=== PATIENT | female | born 1950 | race Caucasian/White ===

== ENCOUNTER → 2022-03-13 | Outpatient (CLI) | payer MEDICARE ==
[2022-03-13 13:20] LABS: BASO # 0.1 10^3/uL (0.0-0.2); BASO % 0.6 % (0.0-1.0); EOS # 0.3 10^3/uL (0.0-0.5); EOS % 3.3 % (0.0-3.0); LYMPH # 2.2 10^3/uL (1.5-5.0); MEAN CORPUSCULAR HEMOGLOBIN 25.3 pg (27.0-33.0); MEAN CORPUSCULAR HGB CONC 29.7 g/dl (32.0-36.5); MEAN CORPUSCULAR VOLUME 85.3 fl (80.0-96.0); MONO # 0.8 10^3/uL (0.0-0.8); MONO % 8.6 % (2.0-8.0); NEUTROPHILS # 5.5 10^3/uL (1.5-8.5); PLATELET COUNT, AUTOMATED 322 10^3/uL (150-450); RED BLOOD COUNT 4.34 10^6/uL (4.00-5.40); WHITE BLOOD COUNT 8.8 10^3/uL (4.0-10.0)
[2022-03-13 13:49] LABS: ALBUMIN 3.2 GM/DL (3.2-5.2); ALT/SGPT 27 U/L (12-78); BILIRUBIN,TOTAL 0.3 MG/DL (0.2-1.0); BLOOD UREA NITROGEN 17 MG/DL (7-18); CALCIUM LEVEL 9.1 MG/DL (8.8-10.2); CARBON DIOXIDE LEVEL 29 MEQ/L (21-32); CHLORIDE LEVEL 109 MEQ/L (98-107); GLOMERULAR FILTRATION RATE > 60.0 (>39); GLUCOSE, FASTING 83 MG/DL (70-100); POTASSIUM SERUM 3.6 MEQ/L (3.5-5.1); SODIUM LEVEL 140 MEQ/L (136-145); TOTAL PROTEIN 6.6 GM/DL (6.4-8.2)
[2022-03-13 14:01] LABS: ERYTHROCYTE SEDIMENTATION RATE 27 mm/hr (0-30)
[2022-03-13 14:32] LABS: VITAMIN B12 LEVEL 1512 PG/ML (247-911)
== END ==
LOC: M LAB 12:06
PROVIDERS: ATTEND Internal Medicine Gastroenterology
DX: K50.819 Crohn's disease of both small and large intestine with unspecified complications (principal)

== ENCOUNTER → 2022-04-01 | Outpatient (CLI) | payer MEDICARE ==
[~2022-04-01] MED LIST: ALLE180T33 PO; ATOR40TA75; BUDE3CAP; FLON1SPR NARES; OMEG10002 PO; OMEP-173; PROAAER10 INH; TUME1CAP PO; VITMTA PO; ZOLO100T
== END ==
LOC: M LABSMTC 11:27
PROVIDERS: ATTEND Anesthesiology
DX: Z01.818 Encounter for other preprocedural examination (principal); Z11.52 Encounter for screening for COVID-19

== ENCOUNTER → 2022-04-16 | Outpatient (CLI) | payer MEDICARE ==
[~2022-04-16] MED LIST changes: +GASTROGRAFIN SOLUTION 30ML (Q9963) As Ordered ONE; +ISOVUE-370 76% 100ML VIAL As Ordered ONE; +TRAV2.5D OP
== END ==
LOC: M RAD 10:40
PROVIDERS: ATTEND Internal Medicine Gastroenterology
DX: C18.9 Malignant neoplasm of colon, unspecified (principal)
CPT/HCPCS: 71260; 74177; Q9963; Q9967

== ENCOUNTER → 2022-09-22 | Outpatient (CLI) | payer MEDICARE ==
[~2022-09-22] MED LIST changes: +ACET325C5 PO; +B-12100010 PO; -GASTROGRAFIN SOLUTION 30ML (Q9963) As Ordered ONE; +GASTROGRAFIN SOLUTION 30ML As Ordered ONE; +HYDR-3713; +METO1TAB87; +NOXI1TAB PO; +TRAM50TA2; +VENTAER INH; +VITA1TAB61 PO
== END ==
LOC: M RAD 11:26
PROVIDERS: ATTEND Specialist
DX: C18.9 Malignant neoplasm of colon, unspecified (principal)
CPT/HCPCS: 71260; 74177; Q9963; Q9967

== ENCOUNTER → 2022-10-21 | Outpatient (CLI) | payer MEDICARE ==
[~2022-10-21] MED LIST changes: +ACET-683 PO; +ACETAMINOPHEN 325 MG TAB As Ordered ONE; +ACETAMINOPHEN TAB 650MG DOSE (2X325MG) PO PRN; -ATOR40TA75; +ATOR40TA75 PO; -GASTROGRAFIN SOLUTION 30ML As Ordered ONE; +HOME MED LIST COMPLETE! XX SCH; -HYDR-3713; +HYDR-3713 PO; +IBUP80TA PO; -ISOVUE-370 76% 100ML VIAL As Ordered ONE; +LIDOCAINE 1% MDV 20ML VIAL As Ordered ONE; -METO1TAB87; +METO1TAB87 PO; -OMEP-173; +OMEP-173 PO; -TRAV2.5D OP; +TRAV2.5D OU
[2022-10-21 13:00] VITALS: BP 144/80
== END ==
LOC: M IRPRO 08:31
PROVIDERS: ATTEND Specialist
DX: C78.01 Secondary malignant neoplasm of right lung (principal); C18.8 Malignant neoplasm of overlapping sites of colon; J95.811 Postprocedural pneumothorax

== ENCOUNTER → 2022-11-16 | Outpatient (CLI) | payer MEDICARE ==
[~2022-11-16] MED LIST changes: -ACETAMINOPHEN 325 MG TAB As Ordered ONE; -ACETAMINOPHEN TAB 650MG DOSE (2X325MG) PO PRN; -HOME MED LIST COMPLETE! XX SCH; +MIDAZOLAM INJ 2MG/2ML VIAL As Ordered ONE; +NS 1,000 ML IV SCH; +ceFAZolin 2 GM/D5W 50 ML IV BAG As Ordered ONE; +ceFAZolin SOD 2 GM in IV 1 EA IV ONE; +diphenhydrAMINE 50MG/ML VIAL As Ordered ONE; +fentaNYL 100 MCG/2 ML INJECTION As Ordered ONE
[2022-11-16 12:00] VITALS: BP 169/92
== END ==
LOC: M IRPRO 08:37
PROVIDERS: ATTEND Specialist
DX: C18.9 Malignant neoplasm of colon, unspecified (principal)
CPT/HCPCS: 36569; C1769; C1788; C1894; J0690; J1200; J2250; J3010

== ENCOUNTER → 2022-11-23 | Outpatient (REF) | payer MEDICARE ==
[~2022-11-23] MED LIST changes: +LIDO1CRE42 TOP; -LIDOCAINE 1% MDV 20ML VIAL As Ordered ONE; -MIDAZOLAM INJ 2MG/2ML VIAL As Ordered ONE; -NS 1,000 ML IV SCH; +ONDA-84 PO; +PROC10TA5 PO; +ZOLO100T PO; -ceFAZolin 2 GM/D5W 50 ML IV BAG As Ordered ONE; -ceFAZolin SOD 2 GM in IV 1 EA IV ONE; -diphenhydrAMINE 50MG/ML VIAL As Ordered ONE; -fentaNYL 100 MCG/2 ML INJECTION As Ordered ONE
[2022-11-23 08:40] LABS: ALBUMIN 3.5 G/DL (3.2-5.2); ALKALINE PHOSPHATASE 123 U/L (46-116); ALT/SGPT 19 U/L (7.0-40); AST/SGOT 19 U/L (<34); BILIRUBIN,TOTAL 0.5 MG/DL (0.3-1.2); BLOOD UREA NITROGEN 12 MG/DL (9-23); CALCIUM LEVEL 8.8 MG/DL (8.3-10.6); CARBON DIOXIDE LEVEL 23 MMOL/L (20-31); CHLORIDE LEVEL 109 MMOL/L (98-107); CHOLESTEROL LEVEL 180 MG/DL (<200); CHOLESTEROL RISK RATIO 2.95 (<5); CREATININE FOR GFR 0.85 MG/DL (0.55-1.30); GLOMERULAR FILTRATION RATE > 60.0 (>39); GLUCOSE, FASTING 137 MG/DL (74-106); LDL CHOLESTEROL 78.8 MG/DL (<100); POTASSIUM SERUM 3.4 MMOL/L (3.5-5.1); SODIUM LEVEL 140 MMOL/L (136-145); TOTAL PROTEIN 6.9 G/DL (5.7-8.2); TRIGLYCERIDES LEVEL 201 MG/DL (<150)
== END ==
LOC: M LAB REF 07:51
PROVIDERS: ATTEND Internal Medicine
DX: E78.2 Mixed hyperlipidemia (principal)

== ENCOUNTER → 2022-12-29 | Outpatient (POV) | payer MEDICARE ==
[~2022-12-29] VITALS: Ht 157.5 cm; Wt 85.0 kg
[~2022-12-29] MED LIST changes: +magnesium; +potassium
[2022-12-29 10:50] VITALS: BP 166/93; O2SAT 100
== END ==
LOC: M IRPOV 10:36
PROVIDERS: ATTEND Radiology Diagnostic Radiology
DX: Z45.2 Encounter for adjustment and management of vascular access device (principal); Z88.5 Allergy status to narcotic agent

== ENCOUNTER → 2023-02-26 | Outpatient (CLI) | payer MEDICARE ==
[~2023-02-26] MED LIST changes: +ISOVUE-370 76% 100ML VIAL As Ordered ONE; -LIDO1CRE42 TOP; +LIDO30CR18 TOP
== END ==
LOC: M RAD 11:11
PROVIDERS: ATTEND Specialist
DX: C18.9 Malignant neoplasm of colon, unspecified (principal)
CPT/HCPCS: 71260; 74177; Q9967

== ENCOUNTER → 2023-05-31 | Outpatient (CLI) | payer MEDICARE ==
[~2023-05-31] MED LIST changes: +GABA-1171 PO
== END ==
LOC: M RAD 11:05
PROVIDERS: ATTEND Specialist
DX: C18.9 Malignant neoplasm of colon, unspecified (principal)
CPT/HCPCS: 71260; 74177; Q9967

== ENCOUNTER → 2023-08-05 | Outpatient (CLI) | payer MEDICARE | LOC: M RAD 11:18 | PROVIDERS: ATTEND Specialist | DX: C18.9 Malignant neoplasm of colon, unspecified (principal) | CPT/HCPCS: 71260; 74177; Q9967 ==

== ENCOUNTER 2023-12-13 09:19 | Day surgery (SDC) | payer MEDICARE ==
[~2023-12-13] VITALS: Ht 154.9 cm; Wt 84.4 kg
[~2023-12-13 09:19] MED LIST changes: +EQL50TAB2 PO; -ISOVUE-370 76% 100ML VIAL As Ordered ONE; +KRIL1000 PO; +NS 1,000 ML IV ONE; +POTA-149 PO; +SERT150C PO; +THERTAB52 PO; +VITA100093 PO
[2023-12-13] MEDS ORDERED: LIDOCAINE 2% 100MG/5ML SDV (FOR ANES.) As Ordered ONE (10:16)
[2023-12-13] MEDS ORDERED: propofoL 500 MG/50 ML VIAL As Ordered ONE (10:16)
[2023-12-13] MEDS ORDERED: ePHEDrine SULFATE 25 MG/5 ML(5MG/ML) SYRINGE As Ordered ONE (10:27)
[2023-12-13] MEDS ORDERED: hydrALAZINE 20MG/ML 1ML VIAL As Ordered ONE (10:27)
[2023-12-13] MEDS ORDERED: PHENYLephrine 500MCG 5ML (100MCG/ML) SYRINGE As Ordered ONE (10:27)
[2023-12-13 10:41] VITALS: TEMP 97.9
[2023-12-13] MEDS ORDERED: ONDANSETRON 4MG 2ML VIAL As Ordered ONE (11:01)
[2023-12-13 11:19] VITALS: BP 121/59; O2SAT 97
== END 2023-12-13 11:20 | disposition home or self-care (01) ==
LOC: M OPP 09:19
PROVIDERS: ATTEND Internal Medicine Gastroenterology
DX: Z01.818 Encounter for other preprocedural examination (principal); K62.1 Rectal polyp; Z87.19 Personal history of other diseases of the digestive system; Z09 Encounter for follow-up examination after completed treatment for conditions other than malignant neoplasm; Z85.048 Personal history of other malignant neoplasm of rectum, rectosigmoid junction, and anus; Z08 Encounter for follow-up examination after completed treatment for malignant neoplasm; Z79.02 Long term (current) use of antithrombotics/antiplatelets; Z79.1 Long term (current) use of non-steroidal anti-inflammatories (NSAID); Z79.52 Long term (current) use of systemic steroids; Z79.899 Other long term (current) drug therapy
CPT/HCPCS: 44382; 45331; 88305; J0360; J2371; J2405

== ENCOUNTER → 2024-02-03 | Outpatient (CLI) | payer MEDICARE ==
[~2024-02-03] MED LIST changes: -NS 1,000 ML IV ONE
== END ==
LOC: M RAD 10:00
PROVIDERS: ATTEND Surgery
DX: C19 Malignant neoplasm of rectosigmoid junction (principal)

== ENCOUNTER → 2024-04-05 | Outpatient (CLI) | payer MEDICARE ==
[~2024-04-05] MED LIST changes: +NYST1POW9 TOP
== END ==
LOC: M ONCR 10:58
PROVIDERS: ATTEND General Practice
DX: C20 Malignant neoplasm of rectum (principal); C77.2 Secondary and unspecified malignant neoplasm of intra-abdominal lymph nodes; C78.01 Secondary malignant neoplasm of right lung; C78.02 Secondary malignant neoplasm of left lung; K50.90 Crohn's disease, unspecified, without complications; J30.2 Other seasonal allergic rhinitis; Z82.49 Family history of ischemic heart disease and other diseases of the circulatory system; Z87.891 Personal history of nicotine dependence; Z79.899 Other long term (current) drug therapy; Z88.5 Allergy status to narcotic agent; Z92.21 Personal history of antineoplastic chemotherapy

== ENCOUNTER 2024-04-18 10:47 | Outpatient (RCR) | payer MEDICARE | END 2024-05-04 | LOC: M ONCR 10:47 | PROVIDERS: ATTEND General Practice | DX: Z51.0 Encounter for antineoplastic radiation therapy (principal); C20 Malignant neoplasm of rectum ==

== ENCOUNTER 2024-05-16 14:45 | Outpatient (RCR) | payer MEDICARE ==
[~2024-05-16 14:45] MED LIST changes: +NYST1POW3 TOP; -NYST1POW9 TOP
== END 2024-06-03 ==
LOC: M ONCR 14:45
PROVIDERS: ATTEND General Practice
DX: Z51.0 Encounter for antineoplastic radiation therapy (principal); C20 Malignant neoplasm of rectum

== ENCOUNTER → 2025-01-17 | Outpatient (CLI) | payer MEDICARE ==
[~2025-01-17] MED LIST changes: +B-122500 PO; -EQL50TAB2 PO; +FAMO10TA50 PO; +ISOVUE-370 76% 100 ML VIAL As Ordered ONE; +POTA-151 PO; +VITA1TAB82 PO
== END ==
LOC: M RAD 08:04
PROVIDERS: ATTEND Internal Medicine Gastroenterology
DX: K56.690 Other partial intestinal obstruction (principal); C20 Malignant neoplasm of rectum; C79.9 Secondary malignant neoplasm of unspecified site
CPT/HCPCS: 74177; Q9967

== ENCOUNTER 2025-01-23 13:25 | Inpatient (IN) | payer MEDICARE ==
[~2025-01-23] VITALS: Ht 157.5 cm; Wt 82.8 kg
[~2025-01-23 13:25] MED LIST changes: -ISOVUE-370 76% 100 ML VIAL As Ordered ONE
[2025-01-23 16:10] LABS: BASO # 0.0 10^3/uL (0.0-0.2); BASO % 0.3 % (0.0-1.0); EOS # 0.1 10^3/uL (0.0-0.5); EOS % 1.0 % (0.0-3.0); LYMPH # 1.2 10^3/uL (1.5-5.0); LYMPH % 12.6 % (24.0-44.0); MONO # 1.0 10^3/uL (0.0-0.8); MONO % 10.3 % (2.0-8.0); NEUTROPHILS # 7.3 10^3/uL (1.5-8.5); NEUTROPHILS % 75.3 % (36.0-66.0); PLATELET COUNT, AUTOMATED 239 10^3/uL (150-450)
[2025-01-23] MEDS: NS (Normal Saline) 0.9% 1,000 ML IV SCH ×2 (16:14→19:32)
[2025-01-23 16:26] LABS: ALT/SGPT 30.0 U/L (7.0-40); AST/SGOT 26.0 U/L (<34); CALCIUM LEVEL 9.6 MG/DL (8.3-10.6); CARBON DIOXIDE LEVEL 23.0 MMOL/L (20-31); CHLORIDE LEVEL 93.0 MMOL/L (98-107); CREATININE FOR GFR 2.2 MG/DL (0.55-1.30); GLOMERULAR FILTRATION RATE 23.0 (>39); MAGNESIUM LEVEL 1.5 MG/DL (1.8-2.4); POTASSIUM SERUM 3.2 MMOL/L (3.5-5.1); SODIUM LEVEL 134.0 MMOL/L (136-145)
[2025-01-23] MEDS ORDERED: FAMO40TA3 PO (16:48)
[2025-01-23] MEDS ORDERED: LIDO30CR18 TOP (16:48)
[2025-01-23] MEDS ORDERED: POTA-151 PO (16:48)
[2025-01-23] MEDS ORDERED: HOME MED LIST COMPLETE! XX SCH (16:50)
[2025-01-23] MEDS: MAG SULF 1GM/100ML (MAG RUN) 1 GM in IV 1 EA IV ONE (17:21)
[2025-01-23] MEDS: NS 500 ML IV ONE (17:21)
[2025-01-23] MEDS ORDERED: NYSTATIN 100,000 UNITS/GM TOPICAL PWD 15 GM TOP PRN (18:50)
[2025-01-23] MEDS ORDERED: FLUTICASONE PROPIONATE 0.05% NASAL SPRAY 16 GM NARES PRN (18:50)
[2025-01-23] MEDS: FAMOTIDINE IV BAG 20 MG in IV 1 EA IV SCH (19:33)
[2025-01-23] MEDS: KCL 10MEQ/100ML SWI (KRUN) 10 MEQ in IV 1 EA IV SCH (20:04)
[2025-01-23 20:27] VITALS: BP 143/78; TEMP 97; O2SAT 99
[2025-01-23 21:22] LABS: INR 1.05
[2025-01-23] MEDS: MORPHINE 2 MG/ML 1 ML VIAL IV PRN (21:28)
[2025-01-23] MEDS: ONDANSETRON 4MG 2ML VIAL IV PRN (22:21)
[2025-01-24] MEDS ORDERED: POTASSIUM CHLORIDE 10MEQ/100ML SWI As Ordered ONE (02:25)
[2025-01-24 03:37] VITALS: BP 107/61; TEMP 97.3; O2SAT 94
[2025-01-24 06:14] LABS: PLATELET COUNT, AUTOMATED 209 10^3/uL (150-450)
[2025-01-24 06:51] LABS: ALT/SGPT 27.0 U/L (7.0-40); AST/SGOT 26.0 U/L (<34); CALCIUM LEVEL 9.0 MG/DL (8.3-10.6); CARBON DIOXIDE LEVEL 24.0 MMOL/L (20-31); CHLORIDE LEVEL 98.0 MMOL/L (98-107); CREATININE FOR GFR 1.88 MG/DL (0.55-1.30); GLOMERULAR FILTRATION RATE 27.7 (>39); MAGNESIUM LEVEL 2.0 MG/DL (1.8-2.4); POTASSIUM SERUM 3.9 MMOL/L (3.5-5.1); SODIUM LEVEL 136.0 MMOL/L (136-145)
[2025-01-24] MEDS: HEPARIN SOD 5000 UNITS/ML 1 ML VIAL/SYRINGE SQ SCH (08:15)
[2025-01-24 12:00] VITALS: BP 107/61; TEMP 96.8; O2SAT 100
[2025-01-24 20:30] VITALS: BP 131/83; TEMP 96.8; O2SAT 96
[2025-01-25 05:00] VITALS: BP 108/63; TEMP 96.8; O2SAT 97
[2025-01-25 06:25] LABS: PLATELET COUNT, AUTOMATED 195 10^3/uL (150-450)
[2025-01-25 06:52] LABS: ALT/SGPT 22.0 U/L (7.0-40); AST/SGOT 21.0 U/L (<34); CALCIUM LEVEL 8.2 MG/DL (8.3-10.6); CARBON DIOXIDE LEVEL 22.0 MMOL/L (20-31); CHLORIDE LEVEL 109.0 MMOL/L (98-107); CREATININE FOR GFR 1.31 MG/DL (0.55-1.30); GLOMERULAR FILTRATION RATE 42.8 (>39); MAGNESIUM LEVEL 1.7 MG/DL (1.8-2.4); POTASSIUM SERUM 3.5 MMOL/L (3.5-5.1); SODIUM LEVEL 143.0 MMOL/L (136-145)
[2025-01-25 08:49] VITALS: BP 115/71; TEMP 97.3; O2SAT 98
[2025-01-25] MEDS: MAG SULF 1GM/100ML (MAG RUN) 1 GM in IV 1 EA IV SCH (11:04)
[2025-01-25 11:52] VITALS: BP 113/69; TEMP 97.2; O2SAT 97
[2025-01-25 20:00] VITALS: BP 124/73; TEMP 97; O2SAT 99
[2025-01-26] VITALS (8 sets, daily range): BP systolic 102–126; BP diastolic 55–73; TEMP 96.8–97.5; O2SAT 94–97
[2025-01-26 06:05] LABS: PLATELET COUNT, AUTOMATED 222 10^3/uL (150-450)
[2025-01-26 06:30] LABS: ALT/SGPT 24.0 U/L (7.0-40); AST/SGOT 23.0 U/L (<34); CALCIUM LEVEL 8.4 MG/DL (8.3-10.6); CARBON DIOXIDE LEVEL 22.0 MMOL/L (20-31); CHLORIDE LEVEL 108.0 MMOL/L (98-107); CREATININE FOR GFR 1.11 MG/DL (0.55-1.30); GLOMERULAR FILTRATION RATE 52.2 (>39); MAGNESIUM LEVEL 1.9 MG/DL (1.8-2.4); POTASSIUM SERUM 3.4 MMOL/L (3.5-5.1); SODIUM LEVEL 146.0 MMOL/L (136-145)
[2025-01-26] MEDS: KCL 10MEQ/100ML SWI (KRUN) 10 MEQ in IV 1 EA IV SCH (08:16)
[2025-01-26] MEDS: NS 0.45% 1,000 ML IV SCH (08:47)
[2025-01-26] MEDS: MORPHINE 2 MG/ML 1 ML VIAL IV PRN ×2 (11:13→20:15)
[2025-01-26] MEDS ORDERED: ROCURONIUM BROMIDE 50MG/5ML VIAL As Ordered ONE (12:44)
[2025-01-26] MEDS ORDERED: LIDOCAINE 2% 100 MG/5 ML SDV (FOR ANES.) As Ordered ONE (12:44)
[2025-01-26] MEDS ORDERED: dexAMETHasone 4 MG/ML 1 ML VIAL As Ordered ONE (12:45)
[2025-01-26] MEDS ORDERED: HYDROmorphone HCL 2 MG/ML 1 ML VIAL As Ordered ONE (13:29)
[2025-01-26] MEDS ORDERED: ONDANSETRON 4MG 2ML VIAL As Ordered ONE (13:53)
[2025-01-26] MEDS ORDERED: PHENYLephrine 500MCG 5ML (100MCG/ML) SYRINGE As Ordered ONE (13:53)
[2025-01-26] MEDS ORDERED: SUGAMMADEX SODIUM 500 MG/5 ML VIAL As Ordered ONE (13:54)
[2025-01-26] MEDS ORDERED: ACETAMINOPHEN 1000MG/100ML IV BAG As Ordered ONE (14:18)
[2025-01-26] MEDS: GLUCAGON INJ 1 MG VIAL As Ordered ONE (16:30)
[2025-01-26] MEDS ORDERED: ACETAMINOPHEN 325 MG TAB PO PRN (16:50)
[2025-01-26] MEDS ORDERED: MORPHINE 4 MG/ML 1 ML VIAL IV PRN (16:50)
[2025-01-26] MEDS ORDERED: HYDROMORPHONE HCL 0.5 MG/0.5 ML SYRINGE IV PRN (17:00)
[2025-01-26] MEDS ORDERED: ONDANSETRON 4MG 2ML VIAL IV PRN (17:00)
[2025-01-26 18:47] LABS: CALCIUM LEVEL 7.8 MG/DL (8.3-10.6); CARBON DIOXIDE LEVEL 15.0 MMOL/L (20-31); CHLORIDE LEVEL 108.0 MMOL/L (98-107); CREATININE FOR GFR 1.0 MG/DL (0.55-1.30); GLOMERULAR FILTRATION RATE 59.1 (>39); POTASSIUM SERUM 4.2 MMOL/L (3.5-5.1); SODIUM LEVEL 142.0 MMOL/L (136-145)
[2025-01-26] MEDS: KETOROLAC 30 MG/ML 1 ML VIAL IV SCH (18:58)
[2025-01-26 19:28] LABS: PLATELET COUNT, AUTOMATED 211 10^3/uL (150-450)
[2025-01-26] MEDS: KCL 10MEQ/100ML SWI (KRUN) 10 MEQ in IV 1 EA IV ONE (19:56)
[2025-01-26] MEDS: LR 1,000 ML IV SCH (20:00)
[2025-01-26 21:51] LABS: VENOUS BASE EXCESS -6.4 (-2.0-2.0); VENOUS HCO3 16.9 MMOL/L (23.0-27.0); VENOUS O2 SATURATION 99.3 % (60.0-80.0); VENOUS PARTIAL PRESSURE CO2 27.0 mmHg (38.0-50.0); VENOUS PARTIAL PRESSURE O2 243.5 mmHg (30.0-50.0); VENOUS PH 7.415 UNITS (7.330-7.430); VENOUS STANDARD HCO3 19.3 MMOL/L; VENOUS TOTAL CO2 17.8 MMOL/L (24.0-28.0)
[2025-01-27 00:48] LABS: CALCIUM LEVEL 7.6 MG/DL (8.3-10.6); CARBON DIOXIDE LEVEL 21.0 MMOL/L (20-31); CHLORIDE LEVEL 109.0 MMOL/L (98-107); CREATININE FOR GFR 1.09 MG/DL (0.55-1.30); GLOMERULAR FILTRATION RATE 53.3 (>39); POTASSIUM SERUM 4.5 MMOL/L (3.5-5.1); SODIUM LEVEL 142.0 MMOL/L (136-145)
[2025-01-27 04:25] VITALS: BP 107/57; TEMP 97.7; O2SAT 98
[2025-01-27] MEDS: CHLORASEPTIC SPRAY MT PRN (04:35)
[2025-01-27 06:30] LABS: PLATELET COUNT, AUTOMATED 179 10^3/uL (150-450)
[2025-01-27 06:59] LABS: ALT/SGPT 17.0 U/L (7.0-40); AST/SGOT 18.0 U/L (<34); CALCIUM LEVEL 7.5 MG/DL (8.3-10.6); CARBON DIOXIDE LEVEL 22.0 MMOL/L (20-31); CHLORIDE LEVEL 109.0 MMOL/L (98-107); CREATININE FOR GFR 1.12 MG/DL (0.55-1.30); GLOMERULAR FILTRATION RATE 51.6 (>39); MAGNESIUM LEVEL 1.3 MG/DL (1.8-2.4); POTASSIUM SERUM 4.1 MMOL/L (3.5-5.1); SODIUM LEVEL 142.0 MMOL/L (136-145)
[2025-01-27 08:00] VITALS: O2SAT 95
[2025-01-27 08:10] VITALS: BP 100/52; TEMP 97; O2SAT 98
[2025-01-27] MEDS: MAG SULF 1GM/100ML (MAG RUN) 1 GM in IV 1 EA IV SCH (12:11)
[2025-01-27 12:20] VITALS: BP 118/66; TEMP 97.3; O2SAT 95
[2025-01-27 16:15] VITALS: BP 112/62; TEMP 97.2; O2SAT 96
[2025-01-27] MEDS: LIDOCAINE 5% OINT 30 GM TUBE TOP ONE (17:02)
[2025-01-27] MEDS ORDERED: SODIUM CHLORIDE 0.9% INJ 10 ML SYR IV PRN (19:05)
[2025-01-27] MEDS ORDERED: HEPARIN LOCK FLUSH 100 UNITS/ML 3 ML SYRINGE IV PRN (19:05)
[2025-01-27 20:00] VITALS: BP 128/70; TEMP 97; O2SAT 98
[2025-01-27] MEDS: MAGNESIUM OXIDE 400 MG TAB PO SCH (21:24)
[2025-01-28 04:00] VITALS: BP 130/70; TEMP 97.2; O2SAT 95
[2025-01-28 07:00] LABS: PLATELET COUNT, AUTOMATED 157 10^3/uL (150-450)
[2025-01-28 07:29] LABS: ALT/SGPT 12.0 U/L (7.0-40); AST/SGOT 23.0 U/L (<34); CALCIUM LEVEL 7.6 MG/DL (8.3-10.6); CARBON DIOXIDE LEVEL 24.0 MMOL/L (20-31); CHLORIDE LEVEL 108.0 MMOL/L (98-107); CREATININE FOR GFR 1.0 MG/DL (0.55-1.30); GLOMERULAR FILTRATION RATE 59.1 (>39); MAGNESIUM LEVEL 1.5 MG/DL (1.8-2.4); POTASSIUM SERUM 3.2 MMOL/L (3.5-5.1); SODIUM LEVEL 145.0 MMOL/L (136-145)
[2025-01-28] MEDS: SERTRALINE HCL 50 MG TAB PO SCH (08:33)
[2025-01-28] MEDS: HEPARIN LOCK FLUSH 100 UNITS/ML 3 ML SYRINGE IV SCH (08:34)
[2025-01-28] MEDS: SODIUM CHLORIDE 0.9% INJ 10 ML SYR IV SCH (08:36)
[2025-01-28 12:00] VITALS: BP 136/78; TEMP 97.5; O2SAT 98
[2025-01-28] MEDS: KCL 10MEQ/100ML SWI (KRUN) 10 MEQ in IV 1 EA IV SCH (12:47)
[2025-01-28] MEDS ORDERED: FAT EMULSION IV 250 ML IV ONE (18:00)
[2025-01-28] MEDS ORDERED: AMINO AC/ELECTROLYTE/DEX/CALC 1,000 ML IV SCH (18:00)
[2025-01-28] MEDS ORDERED: INSULIN LISPRO (NovoLOG) PER UNIT SC SCH (18:00)
[2025-01-28 20:42] VITALS: BP 124/68; TEMP 97.3; O2SAT 95
[2025-01-28] MEDS: LR 1,000 ML IV SCH (21:03)
[2025-01-29] MEDS: MORPHINE 2 MG/ML 1 ML VIAL IV PRN (01:36)
[2025-01-29 03:27] VITALS: BP 116/62; TEMP 97.3; O2SAT 93
[2025-01-29 06:56] LABS: PLATELET COUNT, AUTOMATED 149 10^3/uL (150-450)
[2025-01-29 07:32] LABS: ALT/SGPT 11.0 U/L (7.0-40); AST/SGOT 19.0 U/L (<34); CALCIUM LEVEL 7.3 MG/DL (8.3-10.6); CARBON DIOXIDE LEVEL 25.0 MMOL/L (20-31); CHLORIDE LEVEL 106.0 MMOL/L (98-107); CREATININE FOR GFR 0.86 MG/DL (0.55-1.30); GLOMERULAR FILTRATION RATE 70.9 (>39); MAGNESIUM LEVEL 1.3 MG/DL (1.8-2.4); POTASSIUM SERUM 3.3 MMOL/L (3.5-5.1); SODIUM LEVEL 143.0 MMOL/L (136-145)
[2025-01-29] MEDS: traMADol 50 MG TAB PO PRN (09:40)
[2025-01-29 09:43] LABS: PHOSPHORUS LEVEL 2.7 MG/DL (2.4-5.1)
[2025-01-29] MEDS: MAG SULF 1GM/100ML (MAG RUN) 1 GM in IV 1 EA IV SCH (10:06)
[2025-01-29 12:00] VITALS: BP 110/60; TEMP 97.2; O2SAT 96
[2025-01-29] MEDS: KCL 10MEQ/100ML SWI (KRUN) 10 MEQ in IV 1 EA IV SCH (12:37)
[2025-01-29] MEDS: INSULIN LISPRO (NovoLOG) PER UNIT SC SCH (18:00)
[2025-01-29] MEDS: FAT EMULSION IV 250 ML IV ONE (18:17)
[2025-01-29] MEDS: MULTIVITAMIN -ADULT INJECTION 10 ML, ZINC/COPPER/MANGANESE/SELENIUM 1 ML in AMINO AC/EL... IV SCH (18:18)
[2025-01-29 18:24] LABS: CALCIUM LEVEL 7.8 MG/DL (8.3-10.6); CARBON DIOXIDE LEVEL 22.0 MMOL/L (20-31); CHLORIDE LEVEL 103.0 MMOL/L (98-107); CREATININE FOR GFR 0.88 MG/DL (0.55-1.30); GLOMERULAR FILTRATION RATE 68.9 (>39); MAGNESIUM LEVEL 1.9 MG/DL (1.8-2.4); POTASSIUM SERUM 3.9 MMOL/L (3.5-5.1); SODIUM LEVEL 139.0 MMOL/L (136-145)
[2025-01-29 20:02] VITALS: BP 108/63; TEMP 97.2; O2SAT 93
[2025-01-30 03:50] VITALS: BP 105/58; TEMP 96.8; O2SAT 90
[2025-01-30 06:39] LABS: PLATELET COUNT, AUTOMATED 164 10^3/uL (150-450)
[2025-01-30 07:35] LABS: ALT/SGPT 14.0 U/L (7.0-40); AST/SGOT 21.0 U/L (<34); CALCIUM LEVEL 7.7 MG/DL (8.3-10.6); CARBON DIOXIDE LEVEL 27.0 MMOL/L (20-31); CHLORIDE LEVEL 103.0 MMOL/L (98-107); CREATININE FOR GFR 0.83 MG/DL (0.55-1.30); GLOMERULAR FILTRATION RATE 73.9 (>39); MAGNESIUM LEVEL 1.8 MG/DL (1.8-2.4); POTASSIUM SERUM 3.6 MMOL/L (3.5-5.1); SODIUM LEVEL 139.0 MMOL/L (136-145)
[2025-01-30] MEDS ORDERED: ALBUTEROL 90 MCG/ACT 8 GM HFA INHALER INH PRN (10:30)
[2025-01-30] MEDS: ATORVASTATIN 20 MG TAB PO SCH (11:22)
[2025-01-30 12:00] VITALS: BP 110/57; TEMP 97.2; O2SAT 94
[2025-01-30] MEDS: ENOXAPARIN 40 MG/0.4 ML SYRINGE (J1650 PER 10MG) SC SCH (15:16)
[2025-01-30 20:26] VITALS: BP 110/57; TEMP 97; O2SAT 92
[2025-01-30] MEDS: FAMOTIDINE 20 MG TAB PO SCH (20:38)
[2025-01-30] MEDS ORDERED: METOPROLOL TART 25 MG TABLET PO SCH (21:00)
[2025-01-31 04:17] VITALS: BP 110/58; TEMP 97.2; O2SAT 90
[2025-01-31 06:05] LABS: CALCIUM LEVEL 8.1 MG/DL (8.3-10.6); CARBON DIOXIDE LEVEL 26.0 MMOL/L (20-31); CHLORIDE LEVEL 103.0 MMOL/L (98-107); CREATININE FOR GFR 0.91 MG/DL (0.55-1.30); GLOMERULAR FILTRATION RATE 66.2 (>39); MAGNESIUM LEVEL 1.7 MG/DL (1.8-2.4); POTASSIUM SERUM 3.3 MMOL/L (3.5-5.1); SODIUM LEVEL 140.0 MMOL/L (136-145)
[2025-01-31] MEDS: MAG SULF 1GM/100ML (MAG RUN) 1 GM in IV 1 EA IV SCH (09:04)
[2025-01-31] MEDS: SERTRALINE HCL 50 MG TAB PO SCH (09:05)
[2025-01-31] MEDS ORDERED: HYDR-4514 PO (10:52)
[2025-01-31] MEDS ORDERED: MAGN400T33 PO (10:52)
[2025-01-31] MEDS: KCL 10MEQ/100ML SWI (KRUN) 10 MEQ in IV 1 EA IV SCH (11:53)
[2025-01-31] MEDS: POTASSIUM CHLORIDE 10% LIQ 20MEQ/15ML UDC PO STA (11:53)
[2025-01-31 12:00] VITALS: BP 121/71; TEMP 97.7; O2SAT 96
[2025-01-31 17:53] LABS: CALCIUM LEVEL 8.0 MG/DL (8.3-10.6); CARBON DIOXIDE LEVEL 27.0 MMOL/L (20-31); CHLORIDE LEVEL 102.0 MMOL/L (98-107); CREATININE FOR GFR 0.83 MG/DL (0.55-1.30); GLOMERULAR FILTRATION RATE 73.9 (>39); MAGNESIUM LEVEL 1.8 MG/DL (1.8-2.4); POTASSIUM SERUM 4.3 MMOL/L (3.5-5.1); SODIUM LEVEL 138.0 MMOL/L (136-145)
== END 2025-01-31 19:13 | disposition home health service (06) | DRG 330 ==
LOC: M ED 13:25 → M ED INP 18:43 → M MSPAV 20:27
PROVIDERS: ADMIT Internal Medicine; ATTEND Student in an Organized Health Care Education/Training Program
PROC: 3E0336Z Introduction of Nutritional Substance into Peripheral Vein, Percutaneous Approach (ICD-10-PCS; 2025-01-28)
PROC: 0DB80ZZ Excision of Small Intestine, Open Approach (ICD-10-PCS; principal; 2025-01-30)
PROC: 0DN80ZZ Release Small Intestine, Open Approach (ICD-10-PCS; 2025-01-30)
DX: K56.51 Intestinal adhesions [bands], with partial obstruction (principal); C78.00 Secondary malignant neoplasm of unspecified lung; K50.90 Crohn's disease, unspecified, without complications; N17.9 Acute kidney failure, unspecified; E87.1 Hypo-osmolality and hyponatremia; C20 Malignant neoplasm of rectum; D62 Acute posthemorrhagic anemia; E78.5 Hyperlipidemia, unspecified; M41.9 Scoliosis, unspecified; M19.90 Unspecified osteoarthritis, unspecified site; H40.9 Unspecified glaucoma; G47.33 Obstructive sleep apnea (adult) (pediatric); E53.8 Deficiency of other specified B group vitamins; K21.9 Gastro-esophageal reflux disease without esophagitis; E87.6 Hypokalemia; I10 Essential (primary) hypertension; E86.0 Dehydration; I95.9 Hypotension, unspecified; R63.4 Abnormal weight loss; R63.0 Anorexia; E83.42 Hypomagnesemia; Z93.2 Ileostomy status; Z53.31 Laparoscopic surgical procedure converted to open procedure; Z87.891 Personal history of nicotine dependence; Z90.49 Acquired absence of other specified parts of digestive tract; Z92.3 Personal history of irradiation; Z79.899 Other long term (current) drug therapy; Z88.5 Allergy status to narcotic agent

== ENCOUNTER 2025-02-04 11:41 | Emergency (ER) | payer MEDICARE ==
[~2025-02-04] VITALS: Ht 157.5 cm; Wt 78.6 kg
[~2025-02-04 11:41] MED LIST changes: +FAMO40TA3 PO; +HYDR-4514 PO; +MAGN400T33 PO
[2025-02-04] MEDS: LIDOCAINE 5% OINT 30 GM TUBE TOP ONE (13:00)
[2025-02-04] MEDS ORDERED: MORPHINE 4 MG/ML 1 ML VIAL IV ONE (13:35)
[2025-02-04 14:26] LABS: CALCIUM LEVEL 7.6 MG/DL (8.3-10.6); CARBON DIOXIDE LEVEL 24.0 MMOL/L (20-31); CHLORIDE LEVEL 104.0 MMOL/L (98-107); CREATININE FOR GFR 0.89 MG/DL (0.55-1.30); GLOMERULAR FILTRATION RATE 68.0 (>39); MAGNESIUM LEVEL 1.4 MG/DL (1.8-2.4); POTASSIUM SERUM 3.6 MMOL/L (3.5-5.1); SODIUM LEVEL 141.0 MMOL/L (136-145)
[2025-02-04 14:51] LABS: ALT/SGPT 23.0 U/L (7.0-40); AST/SGOT 27.0 U/L (<34)
[2025-02-04 15:27] LABS: BASO # 0.0 10^3/uL (0.0-0.2); BASO % 0.2 % (0.0-1.0); EOS # 0.2 10^3/uL (0.0-0.5); EOS % 2.2 % (0.0-3.0); LYMPH # 1.1 10^3/uL (1.5-5.0); LYMPH % 12.1 % (24.0-44.0); MONO # 0.9 10^3/uL (0.0-0.8); MONO % 10.4 % (2.0-8.0); NEUTROPHILS # 6.5 10^3/uL (1.5-8.5); NEUTROPHILS % 73.9 % (36.0-66.0); PLATELET COUNT, AUTOMATED 296 10^3/uL (150-450)
[2025-02-04] MEDS: MAG SULF 1GM/100ML (MAG RUN) 1 GM in IV 1 EA IV ONE ×2 (15:39→16:40)
[2025-02-04] MEDS: MORPHINE 2 MG/ML 1 ML VIAL IV PRN (15:40)
[2025-02-04] MEDS ORDERED: HYDR-4571 PO (16:16)
[2025-02-04 16:33] VITALS: TEMP 98.2
[2025-02-04 17:30] VITALS: BP 111/55; O2SAT 99
[2025-02-04] MEDS: HEPARIN LOCK FLUSH 100 UNITS/ML 3 ML SYRINGE IV PRN (17:44)
[2025-02-04] MEDS: SODIUM CHLORIDE 0.9% INJ 10 ML SYR IV PRN (17:44)
== END 2025-02-04 18:00 | disposition home or self-care (01) ==
LOC: M ED 11:41
DX: G89.18 Other acute postprocedural pain (principal); E83.42 Hypomagnesemia; D62 Acute posthemorrhagic anemia; R22.43 Localized swelling, mass and lump, lower limb, bilateral; Z88.5 Allergy status to narcotic agent; Z91.09 Other allergy status, other than to drugs and biological substances; Z79.1 Long term (current) use of non-steroidal anti-inflammatories (NSAID); Z79.51 Long term (current) use of inhaled steroids; Z79.899 Other long term (current) drug therapy; Z79.810 Long term (current) use of selective estrogen receptor modulators (SERMs)
CPT/HCPCS: 74021; 80048; 80076; 83605; 83690; 83735; 83880; 85025; 93005; 93970; 96365; 96366; 96375; 99283; 99284; J1642; J3475

== ENCOUNTER 2025-02-04 19:07 | Emergency (ER) | payer MEDICARE ==
[~2025-02-04] VITALS: Ht 157.5 cm; Wt 78.6 kg
[~2025-02-04 19:07] MED LIST changes: +HYDR-4571 PO
[2025-02-04 19:08] VITALS: TEMP 98.7
[2025-02-04] MEDS: NORCO 5/325MG TABLET (HOME DOSE PACK) PO ONE (20:19)
[2025-02-04 20:26] VITALS: BP 127/60; O2SAT 99
== END 2025-02-04 20:32 | disposition home or self-care (01) ==
LOC: M ED 19:07
DX: Z76.0 Encounter for issue of repeat prescription (principal); Z88.5 Allergy status to narcotic agent; Z91.09 Other allergy status, other than to drugs and biological substances; Z79.1 Long term (current) use of non-steroidal anti-inflammatories (NSAID); Z79.51 Long term (current) use of inhaled steroids; Z79.899 Other long term (current) drug therapy

== ENCOUNTER 2025-02-08 07:34 | Inpatient (IN) | payer MEDICARE ==
[~2025-02-08] VITALS: Ht 157.5 cm; Wt 69.8 kg
[2025-02-08] MEDS: NS (Normal Saline) 0.9% 1,000 ML IV SCH (09:12)
[2025-02-08 09:43] LABS: BASO # 0.0 10^3/uL (0.0-0.2); BASO % 0.3 % (0.0-1.0); EOS # 0.1 10^3/uL (0.0-0.5); EOS % 0.9 % (0.0-3.0); LYMPH # 1.2 10^3/uL (1.5-5.0); LYMPH % 8.5 % (24.0-44.0); MONO # 0.9 10^3/uL (0.0-0.8); MONO % 6.6 % (2.0-8.0); NEUTROPHILS # 11.4 10^3/uL (1.5-8.5); NEUTROPHILS % 82.7 % (36.0-66.0); PLATELET COUNT, AUTOMATED 554 10^3/uL (150-450)
[2025-02-08] MEDS: ONDANSETRON 4MG 2ML VIAL IV ONE (09:46)
[2025-02-08] MEDS ORDERED: HYDR-3713 PO (09:54)
[2025-02-08] MEDS ORDERED: POTA-298 PO (09:56)
[2025-02-08] MEDS ORDERED: MAGN400T2 PO (09:56)
[2025-02-08] MEDS ORDERED: HOME MED LIST COMPLETE! XX SCH (10:00)
[2025-02-08 10:04] LABS: ALT/SGPT 16.0 U/L (7.0-40); AST/SGOT 17.0 U/L (<34); CALCIUM LEVEL 7.9 MG/DL (8.3-10.6); CARBON DIOXIDE LEVEL 25.0 MMOL/L (20-31); CHLORIDE LEVEL 104.0 MMOL/L (98-107); CREATININE FOR GFR 0.97 MG/DL (0.55-1.30); GLOMERULAR FILTRATION RATE 61.3 (>39); MAGNESIUM LEVEL 1.6 MG/DL (1.8-2.4); POTASSIUM SERUM 3.2 MMOL/L (3.5-5.1); SODIUM LEVEL 140.0 MMOL/L (136-145)
[2025-02-08] MEDS: MORPHINE 2 MG/ML 1 ML VIAL IV ONE ×2 (10:38→14:05)
[2025-02-08] MEDS ORDERED: ISOVUE-370 76% 100 ML VIAL As Ordered ONE (11:09)
[2025-02-08] MEDS: MAG SULF 1GM/100ML (MAG RUN) 1 GM in IV 1 EA IV ONE (11:48)
[2025-02-08] MEDS: LR 1,000 ML IV ONE (13:06)
[2025-02-08] MEDS ORDERED: FLUTICASONE PROPIONATE 0.05% NASAL SPRAY 16 GM NARES PRN (13:20)
[2025-02-08] MEDS ORDERED: NALOXONE INJ 0.4 MG/1 ML VIAL IV PRN (13:20)
[2025-02-08] MEDS: PANTOPRAZOLE 40MG VIAL IV ONE (14:05)
[2025-02-08] MEDS: CALCIUM GLUCONATE 1,000 MG in DEXTROSE 5% (D5W) MINI-BAG PLU 100 ML IV ONE (14:40)
[2025-02-08] MEDS: MAG SULF 1GM/100ML (MAG RUN) 1 GM in IV 1 EA IV SCH (14:41)
[2025-02-08 14:47] LABS: CALCIUM LEVEL 8.3 MG/DL (8.3-10.6); MAGNESIUM LEVEL 2.0 MG/DL (1.8-2.4); POTASSIUM SERUM 3.7 MMOL/L (3.5-5.1)
[2025-02-08] MEDS: KCL 40MEQ IN D5/0.45NS 1000ML 1,000 ML IV SCH (16:04)
[2025-02-08 16:51] LABS: KETONE, URINE AUTO RFX NEGATIVE (NEGATIVE); LEUKOCYTE ESTERASE UR AUTO RFX NEGATIVE (NEGATIVE); NITRITE, URINE AUTO RFX NEGATIVE (NEGATIVE); RBC, URINE AUTO RFX 0 /HPF (0-3); SQUAM EPITHELIAL CELL UR AURFX 0 /HPF (0-6); WBC, URINE AUTO RFX 2 /HPF (0-3)
[2025-02-08 17:35] VITALS: BP 124/59; TEMP 98.2; O2SAT 97
[2025-02-08 20:10] VITALS: BP 125/61; TEMP 98.5; O2SAT 96
[2025-02-08 23:46] VITALS: BP 121/60; TEMP 99; O2SAT 94
[2025-02-09] MEDS: MORPHINE 2 MG/ML 1 ML VIAL IV PRN (00:59)
[2025-02-09 04:08] VITALS: BP 134/60; TEMP 98.3; O2SAT 95
[2025-02-09 06:28] LABS: BASO # 0.0 10^3/uL (0.0-0.2); BASO % 0.2 % (0.0-1.0); EOS # 0.4 10^3/uL (0.0-0.5); EOS % 3.8 % (0.0-3.0); LYMPH # 1.3 10^3/uL (1.5-5.0); LYMPH % 12.4 % (24.0-44.0); MONO # 0.9 10^3/uL (0.0-0.8); MONO % 8.8 % (2.0-8.0); NEUTROPHILS # 7.7 10^3/uL (1.5-8.5); NEUTROPHILS % 74.0 % (36.0-66.0); PLATELET COUNT, AUTOMATED 475 10^3/uL (150-450)
[2025-02-09 07:25] LABS: CALCIUM LEVEL 8.0 MG/DL (8.3-10.6); CARBON DIOXIDE LEVEL 25.0 MMOL/L (20-31); CHLORIDE LEVEL 107.0 MMOL/L (98-107); CREATININE FOR GFR 0.81 MG/DL (0.55-1.30); GLOMERULAR FILTRATION RATE 76.1 (>39); MAGNESIUM LEVEL 1.8 MG/DL (1.8-2.4); POTASSIUM SERUM 4.0 MMOL/L (3.5-5.1); SODIUM LEVEL 142.0 MMOL/L (136-145)
[2025-02-09 08:12] VITALS: BP 132/66; TEMP 98.6; O2SAT 97
[2025-02-09] MEDS: PANTOPRAZOLE 40MG VIAL IV SCH (08:41)
[2025-02-09] MEDS: MORPHINE 4 MG/ML 1 ML VIAL IV ONE ×2 (08:41→19:49)
[2025-02-09] MEDS ORDERED: CHLORASEPTIC SPRAY MT PRN (11:45)
[2025-02-09 12:12] VITALS: BP 139/60; TEMP 97.7; O2SAT 98
[2025-02-09] MEDS: MAG SULF 1GM/100ML (MAG RUN) 1 GM in IV 1 EA IV ONE (12:51)
[2025-02-09] MEDS: CALCIUM GLUCONATE 1,000 MG in DEXTROSE 5% (D5W) MINI-BAG PLU 100 ML IV ONE (14:11)
[2025-02-09 16:16] VITALS: BP 124/60; TEMP 98.2; O2SAT 97
[2025-02-09] MEDS: CHLORASEPTIC SPRAY MT PRN (16:23)
[2025-02-09 19:23] VITALS: BP 120/58; TEMP 97.2; O2SAT 97
[2025-02-09 23:07] VITALS: BP 137/60; TEMP 97.1; O2SAT 95
[2025-02-10 03:34] VITALS: BP 140/64; TEMP 97.3; O2SAT 98
[2025-02-10 06:20] LABS: BASO # 0.1 10^3/uL (0.0-0.2); BASO % 0.5 % (0.0-1.0); EOS # 0.5 10^3/uL (0.0-0.5); EOS % 4.9 % (0.0-3.0); LYMPH # 1.7 10^3/uL (1.5-5.0); LYMPH % 15.0 % (24.0-44.0); MONO # 1.0 10^3/uL (0.0-0.8); MONO % 9.4 % (2.0-8.0); NEUTROPHILS # 7.7 10^3/uL (1.5-8.5); NEUTROPHILS % 69.4 % (36.0-66.0); PLATELET COUNT, AUTOMATED 527 10^3/uL (150-450)
[2025-02-10 06:53] LABS: CALCIUM LEVEL 8.2 MG/DL (8.3-10.6); CARBON DIOXIDE LEVEL 26 MMOL/L (20-31); CHLORIDE LEVEL 107 MMOL/L (98-107); CREATININE FOR GFR 0.75 MG/DL (0.55-1.30); GLOMERULAR FILTRATION RATE 83.5 (>39); MAGNESIUM LEVEL 1.8 MG/DL (1.8-2.4); POTASSIUM SERUM 4.2 MMOL/L (3.5-5.1); SODIUM LEVEL 141 MMOL/L (136-145)
[2025-02-10] MEDS: MORPHINE 4 MG/ML 1 ML VIAL IV ONE (07:53)
[2025-02-10] MEDS ORDERED: MORPHINE 4 MG/ML 1 ML VIAL IV PRN (07:55)
[2025-02-10 08:21] VITALS: BP 136/63; TEMP 99.2; O2SAT 98
[2025-02-10] MEDS: MAG SULF 1GM/100ML (MAG RUN) 1 GM in IV 1 EA IV ONE (09:30)
[2025-02-10] MEDS: CALCIUM GLUCONATE 1,000 MG in DEXTROSE 5% (D5W) MINI-BAG PLU 100 ML IV ONE (10:59)
[2025-02-10 12:00] VITALS: BP 124/56; TEMP 98.7; O2SAT 98
[2025-02-10] MEDS: KETOROLAC 30 MG/ML 1 ML VIAL IV SCH (12:20)
[2025-02-10] MEDS: KCL 10MEQ IN D5/0.45NS 1000ML 1,000 ML IV SCH (13:45)
[2025-02-10 16:00] VITALS: BP 132/58; TEMP 98.2; O2SAT 98
[2025-02-10] MEDS ORDERED: GLUCOSE 4 GM CHEW PO PRN (18:05)
[2025-02-10] MEDS ORDERED: GLUCAGON INJ 1 MG VIAL SC PRN (18:05)
[2025-02-10] MEDS ORDERED: DEXTROSE 50% 50 ML SYRINGE IV PRN (18:05)
[2025-02-10 19:29] VITALS: BP 134/61; TEMP 98.2; O2SAT 96
[2025-02-11 03:01] VITALS: BP 141/68; TEMP 97.6; O2SAT 97
[2025-02-11 06:24] LABS: BASO # 0.0 10^3/uL (0.0-0.2); BASO % 0.3 % (0.0-1.0); EOS # 0.6 10^3/uL (0.0-0.5); EOS % 6.4 % (0.0-3.0); LYMPH # 1.2 10^3/uL (1.5-5.0); LYMPH % 13.3 % (24.0-44.0); MONO # 0.9 10^3/uL (0.0-0.8); MONO % 10.0 % (2.0-8.0); NEUTROPHILS # 6.3 10^3/uL (1.5-8.5); NEUTROPHILS % 69.3 % (36.0-66.0); PLATELET COUNT, AUTOMATED 535 10^3/uL (150-450)
[2025-02-11 06:45] LABS: CALCIUM LEVEL 8.3 MG/DL (8.3-10.6); CARBON DIOXIDE LEVEL 26 MMOL/L (20-31); CHLORIDE LEVEL 108 MMOL/L (98-107); CREATININE FOR GFR 0.81 MG/DL (0.55-1.30); GLOMERULAR FILTRATION RATE 76.1 (>39); MAGNESIUM LEVEL 1.9 MG/DL (1.8-2.4); POTASSIUM SERUM 3.9 MMOL/L (3.5-5.1); SODIUM LEVEL 144 MMOL/L (136-145)
[2025-02-11 08:37] VITALS: BP 141/65; TEMP 97.4; O2SAT 98
[2025-02-11 10:57] LABS: PHOSPHORUS LEVEL 3.8 MG/DL (2.4-5.1)
[2025-02-11 12:00] VITALS: BP 142/66; TEMP 98.1; O2SAT 97
[2025-02-11 13:51] VITALS: BP 140/64; TEMP 98.1; O2SAT 95
[2025-02-11] MEDS: HYDROMORPHONE HCL 0.5 MG/0.5 ML SYRINGE IV ONE (14:50)
[2025-02-11] MEDS: ACETAMINOPHEN *IV* 1,000 MG in IV 1 EA IV ONE (14:51)
[2025-02-11] MEDS: CALCIUM GLUCONATE 1,000 MG in DEXTROSE 5% (D5W) MINI-BAG PLU 100 ML IV ONE (15:54)
[2025-02-11] MEDS: MAG SULF 1GM/100ML (MAG RUN) 1 GM in IV 1 EA IV ONE (16:04)
[2025-02-11 16:26] VITALS: BP 126/60; TEMP 97.6; O2SAT 98
[2025-02-11 19:15] VITALS: BP 154/69; TEMP 97.5; O2SAT 97
[2025-02-11] MEDS: HYDROMORPHONE HCL 0.5 MG/0.5 ML SYRINGE IV PRN (21:39)
[2025-02-12] MEDS: HYDROMORPHONE HCL 0.5 MG/0.5 ML SYRINGE IV PRN (01:20)
[2025-02-12 03:10] VITALS: BP 139/74; TEMP 97.2; O2SAT 99
[2025-02-12] MEDS ORDERED: GASTROGRAFIN SOLUTION 30 ML As Ordered ONE (07:45)
[2025-02-12 08:00] VITALS: BP 159/73; TEMP 98.9; O2SAT 98
[2025-02-12 10:22] LABS: BASO # 0.0 10^3/uL (0.0-0.2); BASO % 0.3 % (0.0-1.0); EOS # 0.5 10^3/uL (0.0-0.5); EOS % 5.5 % (0.0-3.0); LYMPH # 1.0 10^3/uL (1.5-5.0); LYMPH % 10.2 % (24.0-44.0); MONO # 0.7 10^3/uL (0.0-0.8); MONO % 7.0 % (2.0-8.0); NEUTROPHILS # 7.4 10^3/uL (1.5-8.5); NEUTROPHILS % 76.3 % (36.0-66.0); PLATELET COUNT, AUTOMATED 505 10^3/uL (150-450)
[2025-02-12 10:52] LABS: CALCIUM LEVEL 8.4 MG/DL (8.3-10.6); CARBON DIOXIDE LEVEL 25.0 MMOL/L (20-31); CHLORIDE LEVEL 108.0 MMOL/L (98-107); CREATININE FOR GFR 0.86 MG/DL (0.55-1.30); GLOMERULAR FILTRATION RATE 70.9 (>39); MAGNESIUM LEVEL 1.8 MG/DL (1.8-2.4); PHOSPHORUS LEVEL 4.2 MG/DL (2.4-5.1); POTASSIUM SERUM 3.8 MMOL/L (3.5-5.1); SODIUM LEVEL 145.0 MMOL/L (136-145)
[2025-02-12] MEDS ORDERED: HEPARIN 1,000 UNITS/ML 10 ML VIAL (FOR RADIOLOGY & DIALYSIS ONLY) IV PRN (15:50)
[2025-02-12] MEDS ORDERED: MIDAZOLAM INJ 2 MG/2 ML VIAL IV PRN (15:50)
[2025-02-12] MEDS: LIDOCAINE 1% MDV 20 ML VIAL SC SCH (15:50)
[2025-02-12] MEDS: ACETAMINOPHEN *IV* 1,000 MG in IV 1 EA IV ONE (16:03)
[2025-02-12] MEDS: NS (Normal Saline) 0.9% 1,000 ML IV SCH (16:04)
[2025-02-12] MEDS: ceFAZolin SODIUM 2 GM in DEXTROSE 5% (D5W) ADV/MINI-BAG 50 ML IV ONE (16:04)
[2025-02-12 17:20] VITALS: BP 137/64; TEMP 98.9; O2SAT 96
[2025-02-12] MEDS: INSULIN LISPRO (NovoLOG) PER UNIT SC SCH (18:00)
[2025-02-12] MEDS: FAT EMULSION IV 250 ML IV ONE (18:18)
[2025-02-12] MEDS: SODIUM CHLORIDE 0.9% INJ 10 ML SYR IV SCH (18:18)
[2025-02-12] MEDS: MULTIVITAMIN -ADULT INJECTION 10 ML, ZINC/COPPER/MANGANESE/SELENIUM 1 ML in AMINO AC/EL... IV SCH (18:18)
[2025-02-12 18:33] LABS: KETONE, URINE AUTO RFX NEGATIVE (NEGATIVE); LEUKOCYTE ESTERASE UR AUTO RFX NEGATIVE (NEGATIVE); MUCUS, URINE RFX SMALL (NEGATIVE); NITRITE, URINE AUTO RFX NEGATIVE (NEGATIVE); RBC, URINE AUTO RFX 2 /HPF (0-3); SQUAM EPITHELIAL CELL UR AURFX 0 /HPF (0-6); WBC, URINE AUTO RFX 9 /HPF (0-3)
[2025-02-12 18:36] LABS: C REACTIVE PROTEIN QUANTITATIV 2.93 MG/DL (<1.0)
[2025-02-12 19:40] VITALS: BP 121/58; TEMP 98; O2SAT 96
[2025-02-13 04:18] VITALS: BP 142/65; TEMP 98.5; O2SAT 94
[2025-02-13 05:35] LABS: BASO # 0.0 10^3/uL (0.0-0.2); BASO % 0.3 % (0.0-1.0); EOS # 0.8 10^3/uL (0.0-0.5); EOS % 6.9 % (0.0-3.0); LYMPH # 0.9 10^3/uL (1.5-5.0); LYMPH % 8.0 % (24.0-44.0); MONO # 0.9 10^3/uL (0.0-0.8); MONO % 7.4 % (2.0-8.0); NEUTROPHILS # 9.0 10^3/uL (1.5-8.5); NEUTROPHILS % 76.9 % (36.0-66.0); PLATELET COUNT, AUTOMATED 491 10^3/uL (150-450)
[2025-02-13 06:00] LABS: CALCIUM LEVEL 8.2 MG/DL (8.3-10.6); CARBON DIOXIDE LEVEL 28.0 MMOL/L (20-31); CHLORIDE LEVEL 105.0 MMOL/L (98-107); CREATININE FOR GFR 0.78 MG/DL (0.55-1.30); GLOMERULAR FILTRATION RATE 79.7 (>39); MAGNESIUM LEVEL 1.7 MG/DL (1.8-2.4); PHOSPHORUS LEVEL 4.1 MG/DL (2.4-5.1); POTASSIUM SERUM 3.4 MMOL/L (3.5-5.1); SODIUM LEVEL 144.0 MMOL/L (136-145)
[2025-02-13 07:46] VITALS: BP 140/70; TEMP 97.5; O2SAT 97
[2025-02-13 11:51] VITALS: BP 115/61; TEMP 98.1; O2SAT 95
[2025-02-13 16:17] VITALS: BP 127/68; TEMP 98.2; O2SAT 95
[2025-02-13] MEDS: INSULIN LISPRO (NovoLOG) PER UNIT SC SCH (17:25)
[2025-02-13] MEDS: FAT EMULSION IV 250 ML IV ONE (18:17)
[2025-02-13] MEDS: AMINO AC/ELECTROLYTE/DEX/CALC 1,000 ML IV SCH (18:18)
[2025-02-13 19:50] VITALS: BP 150/70; TEMP 97.6; O2SAT 96
[2025-02-14 04:30] VITALS: BP 136/64; TEMP 98.2; O2SAT 94
[2025-02-14 05:55] LABS: BASO # 0.0 10^3/uL (0.0-0.2); BASO % 0.3 % (0.0-1.0); EOS # 0.4 10^3/uL (0.0-0.5); EOS % 4.8 % (0.0-3.0); LYMPH # 1.2 10^3/uL (1.5-5.0); LYMPH % 12.6 % (24.0-44.0); MONO # 0.9 10^3/uL (0.0-0.8); MONO % 9.6 % (2.0-8.0); NEUTROPHILS # 6.7 10^3/uL (1.5-8.5); NEUTROPHILS % 72.4 % (36.0-66.0); PLATELET COUNT, AUTOMATED 413 10^3/uL (150-450)
[2025-02-14 06:28] LABS: CALCIUM LEVEL 7.9 MG/DL (8.3-10.6); CARBON DIOXIDE LEVEL 29.0 MMOL/L (20-31); CHLORIDE LEVEL 104.0 MMOL/L (98-107); CREATININE FOR GFR 0.72 MG/DL (0.55-1.30); GLOMERULAR FILTRATION RATE 87.7 (>39); MAGNESIUM LEVEL 1.6 MG/DL (1.8-2.4); PHOSPHORUS LEVEL 4.2 MG/DL (2.4-5.1); POTASSIUM SERUM 3.1 MMOL/L (3.5-5.1); SODIUM LEVEL 143.0 MMOL/L (136-145)
[2025-02-14 07:54] VITALS: BP 128/70; TEMP 98.3; O2SAT 97
[2025-02-14] MEDS: KCL 10MEQ/100ML SWI (KRUN) 10 MEQ in IV 1 EA IV SCH (10:20)
[2025-02-14 12:14] VITALS: BP 133/69; TEMP 98.1; O2SAT 96
[2025-02-14 15:59] VITALS: BP 133/70; TEMP 98.7; O2SAT 95
[2025-02-14] MEDS: INSULIN LISPRO (NovoLOG) PER UNIT SC SCH (18:08)
[2025-02-14] MEDS: FAT EMULSION IV 250 ML IV ONE (18:10)
[2025-02-14 19:24] VITALS: BP 148/81; TEMP 98; O2SAT 95
[2025-02-14] MEDS: MULTIVITAMIN -ADULT INJECTION 10 ML, ZINC/COPPER/MANGANESE/SELENIUM 1 ML, POTASSIUM CHL... IV SCH (21:14)
[2025-02-15] VITALS (7 sets, daily range): BP systolic 133–178; BP diastolic 64–84; TEMP 97.6–98.8; O2SAT 90–97
[2025-02-15 07:12] LABS: BASO # 0.1 10^3/uL (0.0-0.2); BASO % 0.6 % (0.0-1.0); EOS # 0.5 10^3/uL (0.0-0.5); EOS % 5.9 % (0.0-3.0); LYMPH # 1.3 10^3/uL (1.5-5.0); LYMPH % 14.2 % (24.0-44.0); MONO # 1.0 10^3/uL (0.0-0.8); MONO % 10.9 % (2.0-8.0); NEUTROPHILS # 6.2 10^3/uL (1.5-8.5); NEUTROPHILS % 68.1 % (36.0-66.0); PLATELET COUNT, AUTOMATED 384 10^3/uL (150-450)
[2025-02-15 07:21] LABS: CALCIUM LEVEL 8.0 MG/DL (8.3-10.6); CARBON DIOXIDE LEVEL 28 MMOL/L (20-31); CHLORIDE LEVEL 104 MMOL/L (98-107); CREATININE FOR GFR 0.66 MG/DL (0.55-1.30); GLOMERULAR FILTRATION RATE > 90.0 (>39); MAGNESIUM LEVEL 1.9 MG/DL (1.8-2.4); PHOSPHORUS LEVEL 3.6 MG/DL (2.4-5.1); POTASSIUM SERUM 3.4 MMOL/L (3.5-5.1); SODIUM LEVEL 142 MMOL/L (136-145)
[2025-02-15] MEDS ORDERED: LIDOCAINE 1% MDV 20 ML VIAL SC SCH (11:30)
[2025-02-15] MEDS ORDERED: ceFAZolin SODIUM 2 GM in DEXTROSE 5% (D5W) ADV/MINI-BAG 50 ML IV ONE (11:30)
[2025-02-15] MEDS ORDERED: GLUCAGON INJ 1 MG VIAL IV SCH (11:30)
[2025-02-15] MEDS ORDERED: LIDOCAINE 2% JELLY 6 ML SYRINGE TOP SCH (11:30)
[2025-02-15] MEDS ORDERED: ISOVUE-300 61% 100 ML VIAL IV SCH (11:30)
[2025-02-15] MEDS: AMINO AC/ELECTROLYTE/DEX/CALC 2,000 ML IV SCH (18:40)
[2025-02-15] MEDS: FAT EMULSION IV 250 ML IV ONE (18:40)
[2025-02-15] MEDS: INSULIN LISPRO (NovoLOG) PER UNIT SC SCH (18:43)
[2025-02-15] MEDS: ACETAMINOPHEN *IV* 1,000 MG in IV 1 EA IV PRN (22:41)
[2025-02-16] VITALS (11 sets, daily range): BP systolic 109–169; BP diastolic 55–85; TEMP 97.4–98.5; O2SAT 94–99
[2025-02-16 06:08] LABS: PLATELET COUNT, AUTOMATED 375 10^3/uL (150-450)
[2025-02-16 06:29] LABS: ALT/SGPT 10 U/L (7.0-40); AST/SGOT 23 U/L (<34); CALCIUM LEVEL 8.5 MG/DL (8.3-10.6); CARBON DIOXIDE LEVEL 28 MMOL/L (20-31); CHLORIDE LEVEL 109 MMOL/L (98-107); CREATININE FOR GFR 0.66 MG/DL (0.55-1.30); GLOMERULAR FILTRATION RATE > 90.0 (>39); MAGNESIUM LEVEL 2.1 MG/DL (1.8-2.4); POTASSIUM SERUM 3.6 MMOL/L (3.5-5.1); SODIUM LEVEL 146 MMOL/L (136-145)
[2025-02-16] MEDS: LIDOCAINE 2% JELLY 6 ML SYRINGE TOP SCH (10:00)
[2025-02-16] MEDS ORDERED: MIDAZOLAM INJ 2 MG/2 ML VIAL As Ordered ONE (10:03)
[2025-02-16] MEDS: SODIUM CHLORIDE 0.9% 1000 ML XX SCH ×2 (10:37→10:39)
[2025-02-16] MEDS: ceFAZolin SODIUM 2 GM in DEXTROSE 5% (D5W) ADV/MINI-BAG 50 ML IV ONE (10:38)
[2025-02-16] MEDS: GLUCAGON INJ 1 MG VIAL IV SCH (10:41)
[2025-02-16] MEDS: ISOVUE-300 61% 100 ML VIAL IV SCH (11:48)
[2025-02-16] MEDS: LIDOCAINE 1% MDV 20 ML VIAL SC SCH (11:48)
[2025-02-16] MEDS: MORPHINE 2 MG/ML 1 ML VIAL IV ONE (12:19)
[2025-02-16] MEDS: FAT EMULSION IV 250 ML IV ONE (18:18)
[2025-02-16] MEDS: MULTIVITAMIN -ADULT INJECTION 10 ML, ZINC/COPPER/MANGANESE/SELENIUM 1 ML in AMINO AC/EL... IV SCH (18:19)
[2025-02-16] MEDS: INSULIN LISPRO (NovoLOG) PER UNIT SC SCH (18:20)
[2025-02-17 03:43] VITALS: BP 154/79; TEMP 98; O2SAT 100
[2025-02-17 07:56] VITALS: BP 159/79; TEMP 98; O2SAT 94
[2025-02-17] MEDS: NS 0.45% 1,000 ML IV ONE (08:35)
[2025-02-17 11:07] LABS: BASO # 0.0 10^3/uL (0.0-0.2); BASO % 0.2 % (0.0-1.0); EOS # 0.5 10^3/uL (0.0-0.5); EOS % 3.8 % (0.0-3.0); LYMPH # 1.2 10^3/uL (1.5-5.0); LYMPH % 9.5 % (24.0-44.0); MONO # 1.0 10^3/uL (0.0-0.8); MONO % 7.8 % (2.0-8.0); NEUTROPHILS # 9.7 10^3/uL (1.5-8.5); NEUTROPHILS % 78.3 % (36.0-66.0); PLATELET COUNT, AUTOMATED 322 10^3/uL (150-450)
[2025-02-17 11:42] LABS: MAGNESIUM LEVEL 1.6 MG/DL (1.8-2.4); PHOSPHORUS LEVEL 3.7 MG/DL (2.4-5.1)
[2025-02-17 12:00] VITALS: BP 123/66; TEMP 98.1; O2SAT 96
[2025-02-17 16:00] VITALS: BP 126/64; TEMP 98.1; O2SAT 98
[2025-02-17] MEDS: INSULIN LISPRO (NovoLOG) PER UNIT SC SCH (18:14)
[2025-02-17] MEDS: FAT EMULSION IV 250 ML IV ONE (18:44)
[2025-02-17] MEDS: AMINO AC/ELECTROLYTE/DEX/CALC 2,000 ML IV SCH (18:53)
[2025-02-17 20:00] VITALS: BP 132/62; TEMP 97.2; O2SAT 97
[2025-02-18] VITALS: BP 135/74; TEMP 98.8; O2SAT 95
[2025-02-18 04:00] VITALS: BP 127/72; TEMP 97.5; O2SAT 98
[2025-02-18] MEDS: MAG SULF 1GM/100ML (MAG RUN) 1 GM in IV 1 EA IV ONE (06:45)
[2025-02-18 07:20] LABS: BASO # 0.0 10^3/uL (0.0-0.2); BASO % 0.4 % (0.0-1.0); EOS # 0.6 10^3/uL (0.0-0.5); EOS % 6.9 % (0.0-3.0); LYMPH # 1.2 10^3/uL (1.5-5.0); LYMPH % 13.7 % (24.0-44.0); MONO # 0.9 10^3/uL (0.0-0.8); MONO % 10.3 % (2.0-8.0); NEUTROPHILS # 5.8 10^3/uL (1.5-8.5); NEUTROPHILS % 68.3 % (36.0-66.0); PLATELET COUNT, AUTOMATED 299 10^3/uL (150-450)
[2025-02-18 07:33] VITALS: BP 136/74; TEMP 97.4; O2SAT 94
[2025-02-18 07:38] LABS: C REACTIVE PROTEIN QUANTITATIV 1.60 MG/DL (<1.0)
[2025-02-18 07:52] LABS: ALT/SGPT 24 U/L (7.0-40); AST/SGOT 41 U/L (<34); CALCIUM LEVEL 8.0 MG/DL (8.3-10.6); CARBON DIOXIDE LEVEL 27 MMOL/L (20-31); CHLORIDE LEVEL 104 MMOL/L (98-107); CREATININE FOR GFR 0.66 MG/DL (0.55-1.30); GLOMERULAR FILTRATION RATE > 90.0 (>39); MAGNESIUM LEVEL 1.7 MG/DL (1.8-2.4); PHOSPHORUS LEVEL 4.3 MG/DL (2.4-5.1); POTASSIUM SERUM 3.3 MMOL/L (3.5-5.1); SODIUM LEVEL 142 MMOL/L (136-145)
[2025-02-18 08:03] LABS: ERYTHROCYTE SEDIMENTATION RATE 63 mm/hr (0-30)
[2025-02-18 16:00] VITALS: BP 116/76; TEMP 97.6; O2SAT 96
[2025-02-18 19:22] VITALS: BP 117/66; TEMP 97.8; O2SAT 97
[2025-02-18] MEDS: FAT EMULSION IV 250 ML IV ONE (19:27)
[2025-02-18] MEDS: AMINO AC/ELECTROLYTE/DEX/CALC 2,000 ML IV SCH (19:27)
[2025-02-18] MEDS: INSULIN LISPRO (NovoLOG) PER UNIT SC SCH (19:36)
[2025-02-19 03:04] VITALS: BP 136/79; TEMP 97.5; O2SAT 98
[2025-02-19 05:43] VITALS: BP 145/72; TEMP 97.2; O2SAT 98
[2025-02-19 08:16] VITALS: BP 129/72; TEMP 98; O2SAT 95
[2025-02-19 11:31] LABS: BASO # 0.0 10^3/uL (0.0-0.2); BASO % 0.4 % (0.0-1.0); EOS # 0.5 10^3/uL (0.0-0.5); EOS % 6.3 % (0.0-3.0); LYMPH # 1.1 10^3/uL (1.5-5.0); LYMPH % 13.8 % (24.0-44.0); MONO # 0.9 10^3/uL (0.0-0.8); MONO % 10.8 % (2.0-8.0); NEUTROPHILS # 5.6 10^3/uL (1.5-8.5); NEUTROPHILS % 68.2 % (36.0-66.0); PLATELET COUNT, AUTOMATED 321 10^3/uL (150-450)
[2025-02-19 11:40] LABS: ERYTHROCYTE SEDIMENTATION RATE 81 mm/hr (0-30)
[2025-02-19 11:49] LABS: C REACTIVE PROTEIN QUANTITATIV 1.20 MG/DL (<1.0); CALCIUM LEVEL 7.9 MG/DL (8.3-10.6); CARBON DIOXIDE LEVEL 26 MMOL/L (20-31); CHLORIDE LEVEL 106 MMOL/L (98-107); CREATININE FOR GFR 0.66 MG/DL (0.55-1.30); GLOMERULAR FILTRATION RATE > 90.0 (>39); MAGNESIUM LEVEL 1.6 MG/DL (1.8-2.4); PHOSPHORUS LEVEL 4.3 MG/DL (2.4-5.1); POTASSIUM SERUM 3.6 MMOL/L (3.5-5.1); SODIUM LEVEL 141 MMOL/L (136-145)
[2025-02-19] MEDS: KCL 20MEQ IN 100ML SWI (KRUN) 20 MEQ in IV 1 EA IV ONE (12:15)
[2025-02-19 15:55] VITALS: BP 141/73; TEMP 98.2; O2SAT 99
[2025-02-19] MEDS: MULTIVITAMIN -ADULT INJECTION 10 ML, ZINC/COPPER/MANGANESE/SELENIUM 1 ML in AMINO AC/EL... IV SCH (17:35)
[2025-02-19] MEDS: FAT EMULSION IV 250 ML IV ONE (17:35)
[2025-02-19] MEDS: INSULIN LISPRO (NovoLOG) PER UNIT SC SCH (18:00)
[2025-02-19 19:09] VITALS: BP 156/72; TEMP 97.6; O2SAT 99
[2025-02-20 03:20] VITALS: BP 142/74; TEMP 97.3; O2SAT 98
[2025-02-20 08:00] VITALS: BP 140/67; TEMP 98.2
[2025-02-20 15:03] VITALS: BP 144/85; TEMP 97.9; O2SAT 97
[2025-02-20] MEDS: INSULIN LISPRO (NovoLOG) PER UNIT SC SCH (18:00)
[2025-02-20] MEDS: FAT EMULSION IV 250 ML IV ONE (18:23)
[2025-02-20] MEDS: AMINO AC/ELECTROLYTE/DEX/CALC 2,000 ML IV SCH (18:23)
[2025-02-20 19:42] VITALS: BP 139/79; TEMP 97.7; O2SAT 99
[2025-02-20] MEDS: SODIUM CHLORIDE 0.9% INJ 10 ML SYR IV PRN (19:57)
[2025-02-21 03:05] VITALS: BP 138/81; TEMP 97.5; O2SAT 96
[2025-02-21 11:43] VITALS: BP 138/71; TEMP 97.5; O2SAT 96
[2025-02-21] MEDS: HYDROMORPHONE HCL 0.5 MG/0.5 ML SYRINGE IV ONE (15:29)
[2025-02-21] MEDS: MULTIVITAMIN -ADULT INJECTION 10 ML, ZINC/COPPER/MANGANESE/SELENIUM 1 ML in AMINO AC/EL... IV SCH (18:11)
[2025-02-21] MEDS: FAT EMULSION IV 250 ML IV ONE (18:12)
[2025-02-21] MEDS: INSULIN LISPRO (NovoLOG) PER UNIT SC SCH (18:54)
[2025-02-21 20:00] VITALS: BP 127/83; TEMP 97.7; O2SAT 96
[2025-02-22 04:00] VITALS: BP 130/79; TEMP 97.9; O2SAT 98
[2025-02-22 09:20] LABS: BASO # 0.0 10^3/uL (0.0-0.2); BASO % 0.2 % (0.0-1.0); EOS # 1.1 10^3/uL (0.0-0.5); EOS % 11.6 % (0.0-3.0); LYMPH # 1.3 10^3/uL (1.5-5.0); LYMPH % 14.0 % (24.0-44.0); MONO # 1.3 10^3/uL (0.0-0.8); MONO % 13.4 % (2.0-8.0); NEUTROPHILS # 5.7 10^3/uL (1.5-8.5); NEUTROPHILS % 59.9 % (36.0-66.0); PLATELET COUNT, AUTOMATED 277 10^3/uL (150-450)
[2025-02-22 10:01] LABS: CALCIUM LEVEL 9.0 MG/DL (8.3-10.6); CARBON DIOXIDE LEVEL 26 MMOL/L (20-31); CHLORIDE LEVEL 103 MMOL/L (98-107); CREATININE FOR GFR 0.61 MG/DL (0.55-1.30); GLOMERULAR FILTRATION RATE > 90.0 (>39); MAGNESIUM LEVEL 1.7 MG/DL (1.8-2.4); PHOSPHORUS LEVEL 4.6 MG/DL (2.4-5.1); POTASSIUM SERUM 3.9 MMOL/L (3.5-5.1); SODIUM LEVEL 140 MMOL/L (136-145)
[2025-02-22 11:55] VITALS: BP 113/73; TEMP 96.8; O2SAT 96
[2025-02-22] MEDS: ONDANSETRON 4MG 2ML VIAL IV PRN (13:23)
[2025-02-22] MEDS: FAT EMULSION IV 250 ML IV ONE (17:39)
[2025-02-22] MEDS: AMINO AC/ELECTROLYTE/DEX/CALC 2,000 ML IV SCH (17:39)
[2025-02-22] MEDS: INSULIN LISPRO (NovoLOG) PER UNIT SC SCH (18:00)
[2025-02-22 20:00] VITALS: BP 133/71; TEMP 97.3; O2SAT 97
[2025-02-22] MEDS: SIMETHICONE 40MG/0.6ML DROPS 30ML GT SCH (21:00)
[2025-02-23 04:00] VITALS: BP 130/71; TEMP 97.5; O2SAT 97
[2025-02-23 09:28] LABS: CALCIUM LEVEL 9.1 MG/DL (8.3-10.6); CARBON DIOXIDE LEVEL 27.0 MMOL/L (20-31); CHLORIDE LEVEL 103.0 MMOL/L (98-107); CREATININE FOR GFR 0.75 MG/DL (0.55-1.30); GLOMERULAR FILTRATION RATE 83.5 (>39); MAGNESIUM LEVEL 1.8 MG/DL (1.8-2.4); PHOSPHORUS LEVEL 5.6 MG/DL (2.4-5.1); POTASSIUM SERUM 4.1 MMOL/L (3.5-5.1); SODIUM LEVEL 138.0 MMOL/L (136-145)
[2025-02-23 12:00] VITALS: BP 115/71; TEMP 97.3; O2SAT 97
[2025-02-23] MEDS: INSULIN LISPRO (NovoLOG) PER UNIT SC SCH (18:00)
[2025-02-23] MEDS: FAT EMULSION IV 250 ML IV ONE (18:24)
[2025-02-23] MEDS: MULTIVITAMIN -ADULT INJECTION 10 ML, ZINC/COPPER/MANGANESE/SELENIUM 1 ML in AMINO AC/EL... IV SCH (18:24)
[2025-02-23 20:42] VITALS: BP 115/71; TEMP 97.9; O2SAT 97
[2025-02-24 03:20] VITALS: BP 137/80; TEMP 97.5; O2SAT 96
[2025-02-24 06:58] LABS: CALCIUM LEVEL 9.1 MG/DL (8.3-10.6); CARBON DIOXIDE LEVEL 25.0 MMOL/L (20-31); CHLORIDE LEVEL 98.0 MMOL/L (98-107); CREATININE FOR GFR 0.77 MG/DL (0.55-1.30); GLOMERULAR FILTRATION RATE 80.9 (>39); MAGNESIUM LEVEL 1.9 MG/DL (1.8-2.4); PHOSPHORUS LEVEL 6.2 MG/DL (2.4-5.1); POTASSIUM SERUM 5.0 MMOL/L (3.5-5.1); SODIUM LEVEL 134.0 MMOL/L (136-145)
[2025-02-24 12:00] VITALS: BP 131/79; TEMP 98.8; O2SAT 98
[2025-02-24] MEDS: INSULIN LISPRO (NovoLOG) PER UNIT SC SCH (17:40)
[2025-02-24] MEDS: AMINO AC/ELECTROLYTE/DEX/CALC 2,000 ML IV SCH (17:41)
[2025-02-24] MEDS: FAT EMULSION IV 250 ML IV ONE (17:41)
[2025-02-24 19:45] VITALS: BP 104/68; TEMP 97.5; O2SAT 97
[2025-02-25 03:40] VITALS: BP 120/76; TEMP 97.5; O2SAT 96
[2025-02-25 06:44] LABS: CALCIUM LEVEL 9.0 MG/DL (8.3-10.6); CARBON DIOXIDE LEVEL 27.0 MMOL/L (20-31); CHLORIDE LEVEL 100.0 MMOL/L (98-107); CREATININE FOR GFR 0.8 MG/DL (0.55-1.30); GLOMERULAR FILTRATION RATE 77.3 (>39); MAGNESIUM LEVEL 2.0 MG/DL (1.8-2.4); PHOSPHORUS LEVEL 5.4 MG/DL (2.4-5.1); POTASSIUM SERUM 4.1 MMOL/L (3.5-5.1); SODIUM LEVEL 138.0 MMOL/L (136-145)
[2025-02-25] MEDS ORDERED: MORPHINE 10 MG/0.5 ML ORAL CONCENTRATE SOLUTION U/D SL PRN (08:35)
[2025-02-25 12:05] VITALS: BP 111/72; TEMP 97.5; O2SAT 98
[2025-02-25] MEDS: AMINO AC/ELECTROLYTE/DEX/CALC 2,000 ML IV SCH (18:32)
[2025-02-25] MEDS: FAT EMULSION IV 250 ML IV ONE (18:33)
[2025-02-25] MEDS: INSULIN LISPRO (NovoLOG) PER UNIT SC SCH (18:34)
[2025-02-25 20:22] VITALS: BP 110/72; TEMP 97.7; O2SAT 96
[2025-02-26 03:55] VITALS: BP 134/79; TEMP 97.3; O2SAT 97
[2025-02-26 06:47] LABS: CALCIUM LEVEL 9.4 MG/DL (8.3-10.6); CARBON DIOXIDE LEVEL 26.0 MMOL/L (20-31); CHLORIDE LEVEL 101.0 MMOL/L (98-107); CREATININE FOR GFR 0.81 MG/DL (0.55-1.30); GLOMERULAR FILTRATION RATE 76.1 (>39); MAGNESIUM LEVEL 2.0 MG/DL (1.8-2.4); PHOSPHORUS LEVEL 5.4 MG/DL (2.4-5.1); POTASSIUM SERUM 4.1 MMOL/L (3.5-5.1); SODIUM LEVEL 139.0 MMOL/L (136-145)
[2025-02-26 12:00] VITALS: BP 103/69; TEMP 97.9; O2SAT 96
[2025-02-26] MEDS: INSULIN LISPRO (NovoLOG) PER UNIT SC SCH (17:50)
[2025-02-26] MEDS: MULTIVITAMIN -ADULT INJECTION 10 ML, ZINC/COPPER/MANGANESE/SELENIUM 1 ML in AMINO AC/EL... IV SCH (17:50)
[2025-02-26] MEDS: FAT EMULSION IV 250 ML IV ONE (17:50)
[2025-02-26] MEDS: MORPHINE 10 MG/0.5 ML ORAL CONCENTRATE SOLUTION U/D SL PRN (18:02)
[2025-02-26 20:00] VITALS: BP 113/71; TEMP 98.8; O2SAT 99
[2025-02-26] MEDS: OLANZapine ORAL DISINTEGRATING TAB 5MG PO SCH (20:01)
[2025-02-27 04:00] VITALS: BP 117/71; TEMP 97.9; O2SAT 97
[2025-02-27] MEDS: MORPHINE 10 MG/0.5 ML ORAL CONCENTRATE SOLUTION U/D SL PRN (09:29)
[2025-02-27 12:00] VITALS: BP 97/70; TEMP 97.9; O2SAT 99
[2025-02-27] MEDS: MIDODRINE 5 MG TAB PO ONE (13:10)
[2025-02-27 13:14] VITALS: BP 101/78
[2025-02-27] MEDS: INSULIN LISPRO (NovoLOG) PER UNIT SC SCH (17:20)
[2025-02-27] MEDS: AMINO AC/ELECTROLYTE/DEX/CALC 2,000 ML IV SCH (17:33)
[2025-02-27] MEDS: FAT EMULSION IV 250 ML IV ONE (17:34)
[2025-02-27 19:35] VITALS: BP 101/61; TEMP 98.1; O2SAT 99
[2025-02-28 04:26] VITALS: BP 102/63; TEMP 97.9; O2SAT 98
[2025-02-28 06:19] LABS: CALCIUM LEVEL 9.3 MG/DL (8.3-10.6); CARBON DIOXIDE LEVEL 24.0 MMOL/L (20-31); CHLORIDE LEVEL 102.0 MMOL/L (98-107); CREATININE FOR GFR 0.96 MG/DL (0.55-1.30); GLOMERULAR FILTRATION RATE 62.1 (>39); MAGNESIUM LEVEL 2.0 MG/DL (1.8-2.4); POTASSIUM SERUM 3.9 MMOL/L (3.5-5.1); SODIUM LEVEL 138.0 MMOL/L (136-145)
[2025-02-28 11:54] VITALS: BP 105/70; TEMP 97.3; O2SAT 97
[2025-02-28 16:00] VITALS: BP 113/77; TEMP 97.3; O2SAT 97
[2025-02-28] MEDS: FAT EMULSION IV 250 ML IV ONE (18:01)
[2025-02-28] MEDS: INSULIN LISPRO (NovoLOG) PER UNIT SC SCH (18:01)
[2025-02-28] MEDS: MULTIVITAMIN -ADULT INJECTION 10 ML, ZINC/COPPER/MANGANESE/SELENIUM 1 ML in AMINO AC/EL... IV SCH (18:02)
[2025-02-28 20:00] VITALS: BP 112/76; TEMP 97.3; O2SAT 98
[2025-03-01 04:00] VITALS: BP 126/70; TEMP 97.5; O2SAT 95
[2025-03-01 06:48] LABS: CALCIUM LEVEL 9.3 MG/DL (8.3-10.6); CARBON DIOXIDE LEVEL 25.0 MMOL/L (20-31); CHLORIDE LEVEL 103.0 MMOL/L (98-107); CREATININE FOR GFR 0.9 MG/DL (0.55-1.30); GLOMERULAR FILTRATION RATE 67.1 (>39); MAGNESIUM LEVEL 2.0 MG/DL (1.8-2.4); POTASSIUM SERUM 3.9 MMOL/L (3.5-5.1); SODIUM LEVEL 139.0 MMOL/L (136-145)
[2025-03-01 11:35] VITALS: BP 118/76; TEMP 97.3; O2SAT 96
[2025-03-01] MEDS: INSULIN LISPRO (NovoLOG) PER UNIT SC SCH (18:00)
[2025-03-01] MEDS: FAT EMULSION IV 250 ML IV ONE (18:11)
[2025-03-01] MEDS: AMINO AC/ELECTROLYTE/DEX/CALC 2,000 ML IV SCH (18:12)
[2025-03-01 20:02] VITALS: BP 102/72; TEMP 98.6; O2SAT 97
[2025-03-02 03:52] VITALS: BP 127/74; TEMP 97.7; O2SAT 98
[2025-03-02 11:45] VITALS: BP 102/60; TEMP 97.3; O2SAT 98
[2025-03-02] MEDS: INSULIN LISPRO (NovoLOG) PER UNIT SC SCH (18:00)
[2025-03-02] MEDS: MULTIVITAMIN -ADULT INJECTION 10 ML, ZINC/COPPER/MANGANESE/SELENIUM 1 ML in AMINO AC/EL... IV SCH (18:06)
[2025-03-02] MEDS: FAT EMULSION IV 250 ML IV ONE (18:08)
[2025-03-02 20:59] VITALS: BP 106/62; TEMP 98.6; O2SAT 98
== END 2025-03-02 23:45 | disposition short-term general hospital (02) | DRG 389 ==
LOC: M ED 07:34 → M ED INP 12:16 → M PCU 17:33 → M MSPAV 02-20 14:58
PROVIDERS: ADMIT General Practice; ATTEND Student in an Organized Health Care Education/Training Program
PROC: 02H633Z Insertion of Infusion Device into Right Atrium, Percutaneous Approach (ICD-10-PCS; principal; 2025-02-12 15:30)
PROC: 0DHA7UZ Insertion of Feeding Device into Jejunum, Via Natural or Artificial Opening (ICD-10-PCS; 2025-02-16)
DX: K56.600 Partial intestinal obstruction, unspecified as to cause (principal); R65.10 Systemic inflammatory response syndrome (SIRS) of non-infectious origin without acute organ dysfunction; K50.90 Crohn's disease, unspecified, without complications; C18.9 Malignant neoplasm of colon, unspecified; C78.00 Secondary malignant neoplasm of unspecified lung; M41.9 Scoliosis, unspecified; H40.9 Unspecified glaucoma; G47.33 Obstructive sleep apnea (adult) (pediatric); M19.90 Unspecified osteoarthritis, unspecified site; E83.42 Hypomagnesemia; E53.8 Deficiency of other specified B group vitamins; E78.5 Hyperlipidemia, unspecified; K21.9 Gastro-esophageal reflux disease without esophagitis; D63.8 Anemia in other chronic diseases classified elsewhere; I10 Essential (primary) hypertension; E87.6 Hypokalemia; Z79.899 Other long term (current) drug therapy; Z88.5 Allergy status to narcotic agent; Z90.49 Acquired absence of other specified parts of digestive tract; Z93.2 Ileostomy status

== ENCOUNTER → 2025-03-22 | Outpatient (REF) | payer MEDICARE ==
[~2025-03-22] MED LIST changes: +MAGN400T2 PO; +POTA-298 PO
[2025-03-22 14:53] LABS: PLATELET COUNT, AUTOMATED 445 10^3/uL (150-450)
[2025-03-22 15:11] LABS: CALCIUM LEVEL 9.2 MG/DL (8.3-10.6); CARBON DIOXIDE LEVEL 20.0 MMOL/L (20-31); CHLORIDE LEVEL 100.0 MMOL/L (98-107); CREATININE FOR GFR 1.73 MG/DL (0.55-1.30); GLOMERULAR FILTRATION RATE 30.6 (>39); MAGNESIUM LEVEL 2.1 MG/DL (1.8-2.4); PHOSPHORUS LEVEL 4.5 MG/DL (2.4-5.1); POTASSIUM SERUM 3.2 MMOL/L (3.5-5.1); SODIUM LEVEL 131.0 MMOL/L (136-145)
== END ==
LOC: M LAB REF 13:47
PROVIDERS: ATTEND Surgery
DX: Z93.2 Ileostomy status (principal); D64.9 Anemia, unspecified

== ENCOUNTER → 2025-04-06 | Outpatient (REF) | payer MEDICARE ==
[2025-04-06 15:02] LABS: PLATELET COUNT, AUTOMATED 231 10^3/uL (150-450)
[2025-04-06 15:25] LABS: CALCIUM LEVEL 8.7 MG/DL (8.3-10.6); CARBON DIOXIDE LEVEL 27.0 MMOL/L (20-31); CHLORIDE LEVEL 106.0 MMOL/L (98-107); CREATININE FOR GFR 0.81 MG/DL (0.55-1.30); GLOMERULAR FILTRATION RATE 76.1 (>39); POTASSIUM SERUM 3.8 MMOL/L (3.5-5.1); SODIUM LEVEL 143.0 MMOL/L (136-145)
== END ==
LOC: M LAB REF 11:43
DX: Z93.2 Ileostomy status (principal)